=== PATIENT | female | born 1975 | race Caucasian/White ===

== ENCOUNTER 2016-10-19 00:23 | Emergency (ER) | payer SELFPAY ==
[2016-10-19 00:36] VITALS: TEMP 99.3; BMI 50.3
[2016-10-19 01:30] LABS: AUTOMATED BASOPHIL 0.4 % (0-2); AUTOMATED EOSINOPHIL 1.2 % (0-5); AUTOMATED LYMPH 18.6 % (17-44); AUTOMATED MONOCYTE 4.8 % (3-10); MPV 11.1 fL (7.4-10.4)
[2016-10-19 01:35] LABS: BLOOD UREA NITROGEN 14 MG/DL (7-17); CALC CORRECTED 9.3 MG/DL (8.4-10.2); CALCIUM 9.2 MG/DL (8.4-10.2); CALCULATED OSMOLALITY 274 MOs/Kg (270-290); CHLORIDE 107 mEq/L (98-107); GLUCOSE 140 mg/dL (70-99); SODIUM LEVEL 141 mEq/L (137-146); TOTAL PROTEIN 7.4 G/DL (6.3-8.2)
[2016-10-19] MEDS ORDERED: ONDANSETRON HCL 4 MG/2 ML VIAL IV ONE (01:35)
[2016-10-19] MEDS ORDERED: MORPHINE 4 MG/ML INJECTION IV ONE (01:35)
[2016-10-19] MEDS ORDERED: DIPHENHYDRAMINE 50 MG/ML VIAL IV ONE (01:36)
[2016-10-19] MEDS ORDERED: METHYLPREDNISOLONE 125 MG/2 ML VIAL IV ONE (02:05)
[2016-10-19 02:56] LABS: CA OXALATE 3+; LEUKOCYTES/URINE NEG (NEGATIVE); NITRITE/URINE NEG (NEGATIVE); URINE OCCULT BLOOD 1+ (NEG/TRACE)
[2016-10-19] MEDS ORDERED: PROMETHAZINE 25 MG/ML VIAL IV ONE (03:01)
[2016-10-19 04:32] VITALS: BP 120/66; PULSE 95
--- NOTE | 2016-10-19 04:45 | EDPRACDOC ---
- General Information Chief Complaint: Female Urogenital Problems Stated Complaint: N/V Information Source: Patient Mode Of Arrival: Car Home Medications: Home Medications Oxycodone HCl/Acetaminophen [Percocet 5-325 mg Tablet] 1 each PO Q4 #20 tablet 07/03/16 Oxycodone Immediate Release [Oxy-Ir] 5 mg PO Q6H PRN #7 tab 10/19/16 Promethazine [Phenergan] 25 mg PO Q8H PRN #10 tab 10/19/16 Allergies/Adverse Reactions: Allergies Allergy/AdvReac Type Severity Reaction Status Date / Time buspirone HCl [From BuSpar] Allergy Severe Edema-Gener Verified 07/03/16 07:37 alized doxycycline Allergy Severe Hives* Verified 07/03/16 07:37 hydromorphone HCl Allergy Severe Hives* Verified 07/03/16 07:37 [From Dilaudid] - History of Present Illness HPI: C/o inc urinary urge and freq, lower bilat abdo pain, and lower bilat back pain , N/V starting this evening. Also, rash started while here in ED prior to med administration. Denies sob, cp, vag sx, change in BM. Med hx = kidney stones, biploar. Surgical hx = joe, c section. Onset: [employer] tender Urinary Pain Location: Reports: Abdomen Symptom Onset: Reports: Sudden Pain Severity: Moderate Pain Quality: Reports: Cramping History of: Reports: Kidney Stone : No Oral Intake: Decreased Urinary Output: Normal Associated Signs and Symptoms: Reports: Abdominal Pain, Back Pain, Nausea, Vomiting ED Past Medical History - History Reviewed Yes Nurses notes reviewed and agree except as marked - Patient Medical History Neurological History: Denies: Seizures, Migraine Cardiac History: Reports: Hypercholesterolemia. Denies: Hypertension Respiratory History: Reports: Asthma GI/ History: Reports: Kidney Stones. Denies: Urinary Tract Infection Psychological History: Reports: Depression, Anxiety, Bipolar Disorder Systemic History: Reports: Anemia (). Denies: Cancer, Diabetes Surgical History: Reports: Cholecystectomy, Other (FASCIOTOMY LLE ). Denies: Hysterectomy - Family Medical History Comment Only: Diabetes (ADOPTED DOES NOT KNOW FAMILY HISTORY) - Social Medical History Smoking Status: Heavy tobacco smoker (5 or more cigarettes/day or daily pipe/ cigar) EDM Review of Systems - Review of Systems ROS Negative Except as Marked: Yes All systems reviewed and were negative except as marked Gastrointestinal: Nausea, Pain, Vomiting Genitourinary: Frequency, Urgency to urinate - Physical Exam Constitutional: Alert Oriented to: Time, Person, Place Last recorded Vital Signs: Last Vital Signs Temp 99.3 F 10/19/16 00:32 Pulse 95 10/19/16 04:31 Resp 20 10/19/16 04:31 BP 120/66 10/19/16 04:31 Pulse Ox 94 10/19/16 04:31 Oxygen Pulse Oxygen Saturation 94 O2 Device Room Air Oxygen Flow Rate Fraction of Inspired Oxygen ( FIO2) - HEENT Head: Normal Eye Exam: negative: Conjunctival Injection, Scleral Icterus Oropharynx: negative: Drooling Nose: No Symptoms Reported Neck: Normal - Respiratory/Cardiovascular Respiratory: Normal - CTA Cardiovascular: Normal - GI Auscultation: Normal Palpation: Normal Tenderness: Mild, Suprapubic (bilat) - Bladder: Normal External: Normal Vagina: Discharge Cervix: Discharge, Tenderness Uterus: Normal size Adnexa: Right: Tender - Musculoskeletal Back: Normal Extremities: Normal - Integumentary Skin: Normal - Neurologic Mood Description: Normal Thought: Coherent Perception: Normal - Results 10/19/16 00:40 10/19/16 00:40 WBC 17.3 xk/uL (3.8-10.8) H 10/19/16 00:40 RBC 4.99 xM/uL (4.20-5.40) 10/19/16 00:40 Hgb 14.8 g/dL (12.0-16.0) 10/19/16 00:40 Hct 45.2 % (36-47) 10/19/16 00:40 MCV 91 fL (81-99) 10/19/16 00:40 MCH 29.7 pg (27-32) 10/19/16 00:40 MCHC 32.7 g/dl (33-36) L 10/19/16 00:40 RDW 15.2 % (11.5-14.5) H 10/19/16 00:40 Plt Count 310 xk/uL (130-400) 10/19/16 00:40 MPV 11.1 fL (7.4-10.4) H 10/19/16 00:40 Neut % (Auto) 75.0 % (45-76) 10/19/16 00:40 Lymph % (Auto) 18.6 % (17-44) 10/19/16 00:40 [place] % (Auto) 4.8 % (3-10) 10/19/16 00:40 Eos % (Auto) 1.2 % (0-5) 10/19/16 00:40 Baso % (Auto) 0.4 % (0-2) 10/19/16 00:40 Absolute Neuts (auto) 12.98 xk/uL (1.7-8.2) H 10/19/16 00:40 Absolute Lymphs (auto) 3.11 xk/uL (0.65-4.75) 10/19/16 00:40 Sodium 141 mEq/L (137-146) 10/19/16 00:40 Potassium 3.4 mEq/L (3.5-5.1) L 10/19/16 00:40 Chloride 107 mEq/L (98-107) 10/19/16 00:40 Carbon Dioxide 22 mMOL/L (22-33) 10/19/16 00:40 Anion Gap 15 mEq/L (8-16) 10/19/16 00:40 BUN 14 MG/DL (7-17) 10/19/16 00:40 Creatinine 1.00 MG/DL (0.52-1.04) 10/19/16 00:40 Estimated GFR (MDRD) > 60 mL/min (>=60) 10/19/16 00:40 Glucose 140 mg/dL (70-99) H 10/19/16 00:40 Calculated Osmolality 274 MOs/Kg (270-290) 10/19/16 00:40 Calcium 9.2 MG/DL (8.4-10.2) 10/19/16 00:40 Corrected Calcium 9.3 MG/DL (8.4-10.2) 10/19/16 00:40 Total Bilirubin 0.4 MG/DL (0.2-1.3) 10/19/16 00:40 AST 28 IU/L (14-36) 10/19/16 00:40 ALT 39 IU/L (9-52) 10/19/16 00:40 Alkaline Phosphatase 105 IU/L (38-126) 10/19/16 00:40 Total Protein 7.4 G/DL (6.3-8.2) 10/19/16 00:40 Albumin 3.9 G/DL (3.5-5.0) 10/19/16 00:40 Urine Color Yellow 10/19/16 02:29 Urine Clarity Sl cldy 10/19/16 02:29 Urine pH 5.0 (5.0-8.0) 10/19/16 02:29 Ur Specific [place] 1.025 (1.003-1.035) 10/19/16 02:29 Urine Protein Neg (NEG/TRACE) 10/19/16 02:29 Urine Glucose (UA) Neg (NEGATIVE) 10/19/16 02:29 Urine Ketones Neg (NEGATIVE) 10/19/16 02:29 Urine Occult Blood 1+ (NEG/TRACE) H 10/19/16 02:29 Urine Nitrite Neg (NEGATIVE) 10/19/16 02:29 Urine Bilirubin Neg (NEGATIVE) 10/19/16 02:29 Urine Urobilinogen <2.0 MG/DL (0-1) 10/19/16 02:29 Ur Leukocyte Esterase Neg (NEGATIVE) 10/19/16 02:29 Urine RBC 5-10 (0-5) H 10/19/16 02:29 Ur Epithelial Cells 2+ 10/19/16 02:29 Calcium Oxalate Crystal 3+ 10/19/16 02:29 Urine Bacteria Few (NEG/FEW) 10/19/16 02:29 Urine Mucus Sm amt (NEG/OCC) 10/19/16 02:29 Urine Test Neg (NEGATIVE) 10/19/16 02:29 Microbiology 10/19/16 04:00 Trichomonas [place] - Final Vaginal 10/19/16 04:00 SUSHMA Preparation - Final Vaginal Lab Results 10/19/16 10/19/16 10/19/16 02:29 02:29 00:40 WBC 17.3 H RBC 4.99 Hgb 14.8 Hct 45.2 MCV 91 MCH 29.7 MCHC 32.7 L RDW 15.2 H Plt Count 310 MPV 11.1 H Neut % (Auto) 75.0 Lymph % (Auto) 18.6 [place] % (Auto) 4.8 Eos % (Auto) 1.2 Baso % (Auto) 0.4 Absolute Neuts (auto) 12.98 H Absolute Lymphs (auto) 3.11 Sodium Potassium Chloride Carbon Dioxide Anion Gap BUN Creatinine Estimated GFR (MDRD) Glucose Calculated Osmolality Calcium Corrected Calcium Total Bilirubin AST ALT Alkaline Phosphatase Total Protein Albumin Urine Color Yellow Urine Clarity Sl cldy Urine pH 5.0 Ur Specific [place] 1.025 Urine Protein Neg Urine Glucose (UA) Neg Urine Ketones Neg Urine Occult Blood 1+ H Urine Nitrite Neg Urine Bilirubin Neg Urine Urobilinogen <2.0 Ur Leukocyte Esterase Neg Urine RBC 5-10 H Ur Epithelial Cells 2+ Calcium Oxalate Crystal 3+ Urine Bacteria Few Urine Mucus Sm amt Urine Test Neg 10/19/16 00:40 WBC RBC Hgb Hct MCV MCH MCHC RDW Plt Count MPV Neut % (Auto) Lymph % (Auto) [place] % (Auto) Eos % (Auto) Baso % (Auto) Absolute Neuts (auto) Absolute Lymphs (auto) Sodium 141 Potassium 3.4 L Chloride 107 Carbon Dioxide 22 Anion Gap 15 BUN 14 Creatinine 1.00 Estimated GFR (MDRD) > 60 Glucose 140 H Calculated Osmolality 274 Calcium 9.2 Corrected Calcium 9.3 Total Bilirubin 0.4 AST 28 ALT 39 Alkaline Phosphatase 105 Total Protein 7.4 Albumin 3.9 Urine Color Urine Clarity Urine pH Ur Specific [place] Urine Protein Urine Glucose (UA) Urine Ketones Urine Occult Blood Urine Nitrite Urine Bilirubin Urine Urobilinogen Ur Leukocyte Esterase Urine RBC Ur Epithelial Cells Calcium Oxalate Crystal Urine Bacteria Urine Mucus Urine Test Decision Time to Discharge: 04:48 - Departure Disposition: Home Condition: Stable Final Diagnosis: Cervicitis Instructions: Cervicitis (ED) Education/Counseling Given To: Patient Education/Counseling Given Regarding: Diagnosis, Treatment, Prognosis, Follow Up Referrals: Jill Rouse PA [Primary Care Provider] - One Week Jie Xavier DO [Staff Physician] - One Week Prescriptions: New Oxycodone Immediate Release [Oxy-Ir] 5 mg PO Q6H PRN #7 tab PRN Reason: Pain Promethazine [Phenergan] 25 mg PO Q8H PRN #10 tab PRN Reason: Nausea/Vomiting No Action Oxycodone HCl/Acetaminophen [Percocet 5-325 mg Tablet] 1 each PO Q4 #20 tablet Additional Instructions: Follow up with primary care and [facility]. Take phenergan for nausea. Take oxy oxy for pain. Return to ED for any new or worsening symptoms.
[2016-10-19] MEDS ORDERED: AZITHROMYCIN 250 MG TAB PO ONE (04:47)
[2016-10-19] MEDS ORDERED: CEFTRIAXONE 250 MG VIAL IM SCH (05:00)
[2016-10-19] MEDS ORDERED: LIDOCAINE 1% 2 ML (METHYLPARABEN FREE) ONE (05:10)
[2016-10-22 06:39] LABS: CHLAMY BY NUCLEIC ACID AMP Negative (Negative)
[2016-10-22 09:00] LABS: GC BY NUCLEIC ACID AMP Negative (Negative)
== END 2016-10-19 05:30 | disposition home or self-care (01) ==
LOC: ED 00:23
DX: N72 Inflammatory disease of cervix uteri (principal)
CPT/HCPCS: 36415; 80053; 81001; 81025; 85025; 87210; 87220; 87491; 87591; 96372; 96374; 96375; 99284; J0696; J1200; J2001; J2270; J2405; J2550; J2930; J3490